=== PATIENT | female | born 1965 | race Caucasian/White ===

== ENCOUNTER → 2017-11-28 | Outpatient (CLI) | payer OTHER | LOC: BMCIMAGING 14:37 | PROVIDERS: ATTEND Podiatrist Foot & Ankle Surgery | DX: S99.922A Unspecified injury of left foot, initial encounter (principal) ==

== ENCOUNTER 2018-02-10 05:39 | Day surgery (SDC) | payer OTHER ==
[2018-02-10] MEDS ORDERED: LR 1,000 ML IV ONE (05:48)
[2018-02-10] MEDS ORDERED: VANCOMYCIN PHARMACY TO DOSE MISC ONE (06:00)
[2018-02-10] MEDS ORDERED: VANCOMYCIN HCL/NORMAL SALINE 250 ML IV ONE (07:00)
--- NOTE | 2018-02-10 07:00 | PDHPUP ---
History & Physical Update H&P update statement: This history and physical update is based on an assessment of the patient which was completed after admission or registration (within 24 hours), but prior to the surgery/procedure. H&P update: H&P reviewed & patient examined, no change in patient's condition since H&P completed
[2018-02-10] MEDS ORDERED: BUPIVACAINE 0.25% 30 ML SDV ONE (07:03)
[2018-02-10] MEDS ORDERED: LIDOCAINE 1% 300 MG/30 ML SDV ONE (07:03)
--- NOTE | 2018-02-10 07:08 | PDANEPAE ---
ANE History of Present Illness 52 year old for right shoulder lipoma removal. ANE Past Medical History - Cardiovascular History Hx Hypertension: No Hx Arrhythmias: No Hx Chest Pain: No Hx Coronary Artery / Peripheral Vascular Disease: No Hx CHF / Valvular Disease: No Hx Palpitations: No - Pulmonary History Hx COPD: No Hx Asthma/Reactive Airway Disease: No Hx Recent Upper Respiratory Infection: No Hx Oxygen in Use at Home: No Hx Sleep Apnea: No - Neurologic History Hx Cerebrovascular Accident: No Hx Seizures: No Hx Dementia: No - Endocrine History Hx Diabetes: No Hypothyroid: No Hyperthyroid: No Obesity: no - Renal History Hx Renal Disorders: No - Liver History Hx Hepatic Disorders: No - Neurological & Psychiatric Hx Hx Neurological and Psychiatric Disorders: No - Cancer History Hx Cancer: No - Congenital Disorder History Hx Congenital Disorders: No - GI History Hx Gastrointestinal Disorders: No - Chronic Pain History Chronic Pain: No - Surgical History Prior Surgeries: NONE ANE Review of Systems Review of systems is: negative Review of Systems: - Exercise capacity Exercise capacity: >=4 METS METS (RN): 6 METS ANE Patient History - Allergies Allergies/Adverse Reactions: latex Allergy (Verified 02/10/18 06:11) Penicillins Allergy (Verified 02/10/18 06:11) Rash thimerosal Allergy (Verified 02/10/18 06:11) - Home Medications Home medications: home medication list seen and reviewed - NPO status NPO Status: no food or drink >8 hours NPO Since - Liquids (Date): 02/09/18 NPO Since - Liquids (Time): 21:00 NPO Since - Solids (Date): 02/09/18 NPO Since - Solids (Time): 19:00 - Anes Hx Anes Hx: no prior problems - Smoking Hx Smoking Status: Never smoked Marijuana use: No - Alcohol Use Alcohol Use: Rarely - Family Anes Hx Family Anes Hx: neg - N/A Family Hx Anesthesia Complications: NONE ANE Labs/Vital Signs - Vital Signs Vital Signs: reviewed preoperatively; see RN documention for details Blood Pressure: 119/69 Heart Rate: 93 Respiratory Rate: 15 O2 Sat (%): 100 Height: 170.18 cm Weight: 54.431 kg ANE Physical Exam - Airway Neck exam: FROM Mallampati Score: Class 2 Mouth exam: normal dental/mouth exam - Pulmonary Pulmonary: no respiratory distress - Cardiovascular Cardiovascular: regular rate and rhythym - ASA Status ASA Status: I ANE Anesthesia Plan Anesthesia Plan: GA w LMA Total IV Anesthesia: No
[2018-02-10] MEDS ORDERED: MIDAZOLAM 2 MG/2 ML VIAL IVP ONE (07:09)
[2018-02-10] MEDS ORDERED: PROPOFOL 200 MG/20 ML VIAL ONE (07:16)
[2018-02-10] MEDS ORDERED: fentaNYL 100 MCG/2 ML INJ ONE (07:16)
[2018-02-10] MEDS ORDERED: ONDANSETRON 4 MG/2 ML VIAL ONE (07:19)
[2018-02-10] MEDS ORDERED: DEXAMETHASONE 4 MG/ML VIAL ONE (07:19)
--- NOTE | 2018-02-10 07:30 | POSTOPPROG ---
Post Op Note Date of Operation: 02/10/18 Surgeon: Alicia Trimble Anesthesiologist: rain Anesthesia: LMA Pre-op Diagnosis: L shoulder mass, L back mass Post-op Diagnosis: same Indication: 52 year old with L shoulder mass and l back mass Procedure: Excision L shoulder mass and L back mass Findings: 3 cm shoulder mass 6 cm back mass Inf/Abcess present in the surg proc area at time of surgery?: No EBL: Minimal Specimen(s): shoulder mass and back mass
[2018-02-10] MEDS ORDERED: PHENYLEPHRINE HCL 100 MCG/ML SYR ONE (07:38)
[2018-02-10] MEDS ORDERED: NALOXONE HCL 0.4 MG/ML INJ IVP PRN (07:48)
[2018-02-10] MEDS ORDERED: PHENYLEPHRINE HCL 100 MCG/ML SYR IVP PRN (07:48)
[2018-02-10] MEDS ORDERED: fentaNYL 100 MCG/2 ML INJ IVP PRN (07:48)
[2018-02-10] MEDS ORDERED: ONDANSETRON 4 MG/2 ML VIAL IVP PRN (07:48)
[2018-02-10] MEDS ORDERED: LR 500 ML IV PRN (07:48)
[2018-02-10] MEDS ORDERED: HYDROCODONE/APAP 5/325 TAB PO PRN (07:48)
--- NOTE | 2018-02-10 08:39 | GOP ---
[f rep st] OPERATIVE REPORT DATE OF OPERATION: 02/10/2018 SURGEON: Alicia Trimble MD ANESTHESIA: General. ANESTHESIOLOGIST: Jordan Horner MD. PREOPERATIVE DIAGNOSIS: Left back mass, left shoulder mass. POSTOPERATIVE DIAGNOSIS: Left back mass, left shoulder mass. PROCEDURE PERFORMED: Excision of left shoulder mass 3 cm and left back mass 7 cm. FINDINGS: Both masses were deep to the muscle layer. SPECIMENS: For permanent. ESTIMATED BLOOD LOSS: 10 cc. INDICATIONS: Colette Cesar is a 52-year-old who noticed an enlarging mass on her back that when she wears a sports bra created some numbness. She also had a mass on her scapula. DESCRIPTION OF PROCEDURE: Patient was brought into the operating room, placed supine on the table an d general anesthesia was administered. Her back was prepped and draped in the usual sterile fashion. I infiltrated the area with 30 cc of 0.25% Marcaine. I made an incision over the back mass. I cre ated superior and inferior skin flaps. The mass was deep to the layer of the muscles. I was able to spread the muscle and then extract the mass. Hemostasis achieved. I closed this wound deep layer w ith 3-0 Vicryl and then the skin with 3-0 Vicryl, followed by 4-0 Monocryl. In a similar fashion, I excised the mass on her scapula. It was also deep to the muscle layer. Hemostasis achieved. Wound closed with 3-0 Vicryl, followed by 4-0 Monocryl. Dermabond applied to both wounds. She was placed back in the supine position, awakened, extubated, transferred to PACU in stable condition. /[id number]/MODL
[2018-02-10 09:35] VITALS: BP 107/68
--- NOTE | 2018-02-10 15:07 | POSTANESTH ---
Post Anesthetic Evaluation Cardiovascular Status: Normal, Stable, Similar to Pre-Op Cond Respiratory Status: Normal, Stable, Similar to Pre-op Cond. Level of Consciousness/Mental Status: Can Participate in Eval, Alert and Oriented Pain Control: Adequate, Prn Tx Ordered Nausea/Vomiting Control: Adequate, Prn Tx Ordered Complications Possibly Related to Anesthesia: None Noted
== END 2018-02-10 09:34 | disposition home or self-care (01) ==
LOC: FSGY 05:39
PROVIDERS: ATTEND Surgery
DX: D17.22 Benign lipomatous neoplasm of skin and subcutaneous tissue of left arm (principal); D17.1 Benign lipomatous neoplasm of skin and subcutaneous tissue of trunk; D68.8 Other specified coagulation defects
CPT/HCPCS: J1100; J2250; J2370; J2405; J2704; J3010; J3370